=== PATIENT | male | born 1940 | race Caucasian/White ===

== ENCOUNTER 2016-11-07 00:45 | Inpatient (IN) | payer OTHER, MEDICARE ==
[~2016-11-07] VITALS: Ht 170.2 cm; Wt 74.8 kg
[~2016-11-07 00:45] MED LIST: MELO-1 PO; SIMV10TA PO
[2016-11-07 01:10] VITALS: BP 166/74; PULSE 74; RESP 18; TEMP 97.9; O2SAT 94
[2016-11-07] MEDS ORDERED: SODIUM CHLORIDE 0.9% FLUSH 10 ML FLUSH IV FLUSH PRN (01:15)
[2016-11-07] MEDS ORDERED: NALOXONE HCL 0.4 MG/ML AMP IV PRN (01:15)
[2016-11-07] MEDS: ACETAMINOPHEN/HYDROcodone 325 MG/5 MG TAB PO PRN ×4 (02:23→22:29)
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
[2016-11-07 04:00] VITALS: BP 120/64; PULSE 63; RESP 16; TEMP 97.1; O2SAT 94
[2016-11-07 07:00] VITALS: BP 126/69; PULSE 62; RESP 18; TEMP 97.5; O2SAT 96
[2016-11-07 08:18] LABS: POTASSIUM 4.4 MEQ/L (3.5-5.1)
[2016-11-07] MEDS: SODIUM CHLORIDE 0.9% FLUSH 10 ML FLUSH IV FLUSH SCH ×2 (08:37→21:00)
[2016-11-07 09:06] LABS: BICARBONATE 15.6 MEQ/L (21.0-32.0)
[2016-11-07 12:43] VITALS: BP 145/77; PULSE 65; RESP 18; TEMP 96.8; O2SAT 95
--- NOTE | 2016-11-07 12:51 | HHI.PR ---
Subjective Remarks Follow up cervical spine fracture. Patient reports some neck pain and some pain in the back of his head. No numbness/tingling/weakness of his extremities. He states that neurosurgery saw him and removed the cervical collar. Objective Vitals Vital Signs Date Time Temp Pulse Resp B/P Pulse Ox O2 Delivery O2 Flow Rate FiO2 11/07/16 12:43 96.8 65 18 145/77 95 11/07/16 07:00 97.5 62 18 126/69 96 11/07/16 04:00 97.1 63 16 120/64 94 11/07/16 01:10 97.9 74 18 166/74 94 I/O 11/06/16 11/06/16 11/06/16 11/07/16 11/07/16 11/07/16 07:00 15:00 23:00 07:00 15:00 23:00 Intake Total 480 ml Balance 480 ml Intake Oral 480 ml # Voids 1 Result Diagram: 11/07/16 0733 Objective Remarks General: Elderly male in no acute distress. Heart: Regular rate and rhythm. No murmur. Lungs: Clear to auscultation bilaterally. No wheezes, rales, or rhonchi. Breathing is nonlabored. Abdomen: Soft, nontender, nondistended. Extremities: No lower extremity edema. Psych: Alert and oriented. Procedures None Urinary Catheter: No Vascular Central Line Catheter: No A/P Problem List: (1) Fracture of cervical spine without lesion of spinal cord ICD Code: S12.9XXA Status: Acute (2) Leukocytosis ICD Code: D72.829 Status: Acute Assessment and Plan 1. C6-C7 vertebral fracture: Cervical collar has been removed. Appreciate neurosurgery recommendations. Continue neuro checks, pain medication. 2. Leukocytosis: Likely stress reaction. Monitor labs. Patient remains afebrile. 3. Hyperlipidemia: Continue statin. 4. DVT prophylaxis: DARWIN Estrada. Jeremy John MD Nov 07, 2016 12:51
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
[2016-11-07 14:22] LABS: AUTOMATED NEUTROPHIL # 6.5 TH/MM3 (1.8-7.7); BASOPHIL # 0.1 TH/MM3 (0-0.2); BASOPHIL % 0.8 % (0.0-2.0); EOSINOPHIL # 0.1 TH/MM3 (0-0.4); EOSINOPHIL % 1.4 % (0.0-4.0); HEMATOCRIT 37.7 % (39.0-51.0); HEMO FLAGS DIFF FINAL; LYMPH % 15.7 % (9.0-44.0); LYMPHOCYTE # 1.4 TH/MM3 (1.0-4.8); MEAN CELL VOLUME 89.8 FL (80.0-100.0); MEAN CORPUSCULAR HEMOGLOBIN 30.6 PG (27.0-34.0); MONO % 10.5 % (0.0-8.0); NEUT % 71.6 % (16.0-70.0); PLATELET COUNT 206 TH/MM3 (150-450); RED CELL DISTRIBUTION WIDTH 13.1 % (11.6-17.2)
[2016-11-07 16:10] VITALS: BP 114/67; PULSE 69; RESP 18; TEMP 97.3; O2SAT 95
--- NOTE | 2016-11-07 18:29 | RADRPT ---
EXAM DATE/TIME: 11/07/2016 18:12 [facility] COMPARISON: CT CERVICAL SPINE W/O CONTRAST, November 06, 2016, 18:29. INDICATIONS : Evaluate C6/7 fracture. Neck pain MEDICAL HISTORY : None. SURGICAL HISTORY : None. ENCOUNTER: Subsequent ACUITY: 2 days PAIN SCORE: 6/10 LOCATION: Bilateral posterior cervical spine. FINDINGS: Lateral views of the cervical spine were obtained with neutral, flexion and extension positioning. Th is again demonstrates the vertical fractures through the C6 and C7 transverse processes. There are mi ld degenerative disc changes with slight disc space narrowing and spurring. There is no abnormal mobi lity. The prevertebral soft tissues are within normal limits. There is anterior spurring and mild oss ification in the anterior longitudinal ligament. CONCLUSION: 1. Fractures of the C6 and C7 spinous process is again noted. 2. Mild degenerative disc change with no abnormal mobility. Bari Long MD on November 07, 2016 at 18:25 Board Certified Radiologist. This report was verified electronically.
[2016-11-07 20:00] VITALS: BP 144/68; PULSE 64; PULSE 82; RESP 20; TEMP 99; O2SAT 93
[2016-11-07] MEDS ORDERED: PRAVASTATIN SOD 20 MG TAB PO SCH (21:00)
[2016-11-08] VITALS: BP 122/68; PULSE 76; RESP 20; TEMP 98.1; O2SAT 95
[2016-11-08 04:00] VITALS: BP 152/71; PULSE 68; RESP 20; TEMP 97.1; O2SAT 97
[2016-11-08 08:35] VITALS: BP 139/72; PULSE 66; RESP 18; TEMP 97.3; O2SAT 95
[2016-11-08 08:44] LABS: AUTOMATED NEUTROPHIL # 5.3 TH/MM3 (1.8-7.7); BASOPHIL # 0.1 TH/MM3 (0-0.2); BASOPHIL % 0.7 % (0.0-2.0); EOSINOPHIL # 0.2 TH/MM3 (0-0.4); HEMATOCRIT 40.8 % (39.0-51.0); HEMO FLAGS DIFF FINAL; LYMPH % 23.9 % (9.0-44.0); MEAN CELL VOLUME 89.7 FL (80.0-100.0); MEAN CORPUSCULAR HEMOGLOBIN 30.5 PG (27.0-34.0); MEAN CORPUSCULAR HGB CONC 33.9 % (32.0-36.0); MONO % 10.2 % (0.0-8.0); NEUT % 63.2 % (16.0-70.0); PLATELET COUNT 246 TH/MM3 (150-450); RED BLOOD COUNT 4.54 MIL/MM3 (4.50-5.90); RED CELL DISTRIBUTION WIDTH 13.2 % (11.6-17.2); WHITE BLOOD COUNT 8.5 TH/MM3 (4.0-11.0)
[2016-11-08] MEDS: SODIUM CHLORIDE 0.9% FLUSH 10 ML FLUSH IV FLUSH SCH (09:00)
[2016-11-08 09:12] LABS: BICARBONATE 30.8 MEQ/L (21.0-32.0); POTASSIUM 3.8 MEQ/L (3.5-5.1)
[2016-11-08] MEDS: ACETAMINOPHEN/HYDROcodone 325 MG/5 MG TAB PO PRN (12:19)
[2016-11-08 12:27] VITALS: BP 126/64; PULSE 69; RESP 18; TEMP 97; O2SAT 94
[2016-11-08] MEDS ORDERED: HYDR-3516 PO (12:51)
--- NOTE | 2016-11-08 12:52 | HHI.DCPOC ---
Discharge Care Plan Diagnosis: (1) Leukocytosis (2) Fracture of cervical spine without lesion of spinal cord Goals to Promote Your Health * To prevent worsening of your condition and complications * To maintain your health at the optimal level Directions to Meet Your Goals Take your medications as prescribed Follow your dietary instruction Follow activity as directed Keep your appointments as scheduled Take your immunizations and boosters as scheduled If your symptoms worsen call your PCP, if no PCP go to Urgent Care Center or Emergency Room Smoking is Dangerous to Your Health. Avoid second hand smoke Call the 24-hour hour crisis hotline for domestic abuse at Jeremy John MD Nov 08, 2016 12:52
--- NOTE | 2016-11-08 12:54 | HHI.PR ---
Subjective Remarks Follow-up cervical spine fracture. Patient still having some pain in the back of the neck. No numbness,, weakness of his extremities. Objective Vitals Vital Signs Date Time Temp Pulse Resp B/P Pulse Ox O2 Delivery O2 Flow Rate FiO2 11/08/16 12:27 97.0 69 18 126/64 94 11/08/16 08:35 97.3 66 18 139/72 95 11/08/16 04:00 97.1 68 20 152/71 97 11/08/16 00:00 98.1 11/08/16 00:00 98.1 76 20 122/68 95 11/07/16 20:00 99.0 82 20 144/68 93 11/07/16 20:00 64 11/07/16 16:10 97.3 69 18 114/67 95 I/O 11/07/16 11/07/16 11/07/16 11/08/16 11/08/16 11/08/16 07:00 15:00 23:00 07:00 15:00 23:00 Intake Total 480 ml 480 ml 240 ml Balance 480 ml 480 ml 240 ml Intake Oral 480 ml 480 ml 240 ml # Voids 1 4 2 2 Result Diagram: 11/08/16 0741 11/08/16 0741 Imaging Last Impressions Cervical Spine X-Ray 11/07/16 0000 Signed Impressions: Service Date/Time: October 18:12 - CONCLUSION: 1. Fractures of the C6 and C7 spinous process is again noted. 2. Mild degenerative disc change with no abnormal mobility. Bari Long MD Objective Remarks General: Elderly male in no acute distress. Heart: Regular rate and rhythm. No murmur. Lungs: Clear to auscultation bilaterally. No wheezes, rales, or rhonchi. Breathing is nonlabored. Abdomen: Soft, nontender, nondistended. Extremities: No lower extremity edema. Psych: Alert and oriented. Procedures None Urinary Catheter: No Vascular Central Line Catheter: No A/P Problem List: (1) Fracture of cervical spine without lesion of spinal cord ICD Code: S12.9XXA Status: Acute (2) Leukocytosis ICD Code: D72.829 Status: Acute Assessment and Plan 1. C6-C7 vertebral fracture: Cervical collar has been removed. Appreciate neurosurgery recommendations. Continue neuro checks, pain medication. Cleared for discharge by neurosurgery. 2. Leukocytosis: Likely stress reaction. Resolved. 3. Hyperlipidemia: Continue statin. 4. DVT prophylaxis: DARWIN Estrada. Discharge Planning Discharge home in stable condition. Follow-up with PCP, neurosurgery. Heart healthy diet. Activity as tolerated. Per neurosurgery, patient can wear the cervical collar for comfort. Jeremy John MD Nov 08, 2016 12:54
== END 2016-11-08 14:54 | disposition home or self-care (01) | DRG 552 ==
LOC: NEDDLT 00:45 → N05A 00:55 → OBSVTOIN 11:52
PROVIDERS: ADMIT Family Medicine; ATTEND Family Medicine
DX: S12.500A Unspecified displaced fracture of sixth cervical vertebra, initial encounter for closed fracture (principal); M41.9 Scoliosis, unspecified; S12.600A Unspecified displaced fracture of seventh cervical vertebra, initial encounter for closed fracture; E78.5 Hyperlipidemia, unspecified; V86.59XA Driver of other special all-terrain or other off-road motor vehicle injured in nontraffic accident, initial encounter; Y92.838 Other recreation area as the place of occurrence of the external cause; M19.90 Unspecified osteoarthritis, unspecified site; M48.06 Spinal stenosis, lumbar region; D72.829 Elevated white blood cell count, unspecified; F43.9 Reaction to severe stress, unspecified
CPT/HCPCS: 71010; 72040; 72125; 72128; 72131; 73030; 80048; 80053; 85025; 85610; 93005; 99281; J1170; J2405